=== PATIENT | female | born 1965 | race Caucasian/White ===

== ENCOUNTER 2025-05-17 07:31 | Emergency (ER) | payer OTHER ==
[~2025-05-17] VITALS: Ht 154.9 cm; Wt 67.1 kg
[~2025-05-17 07:31] MED LIST: ACYCLOVIR400 MG PO; CHLORTHALIDONE25 MG PO
[2025-05-17] MEDS ORDERED: HYDROmorphone HCL 1 MG/ML SYR IV PRN (08:00)
[2025-05-17] MEDS ORDERED: SODIUM CHLORIDE 0.9% 1,000 ML IV ONE (08:00)
[2025-05-17] MEDS ORDERED: LOSARTAN POTAS100 MG PO (08:03)
[2025-05-17] MEDS ORDERED: HYDROCHLOROTHIA25 MG PO (08:03)
[2025-05-17 08:04] LABS: BASOPHILS 0.3 % (0.1-1.2); EOSINOPHILS 0.5 % (0.7-5.8); LYMPHOCYTES 19.9 % (19.3-51.7); MCH 32.7 PG (25.6-32.2); MCHC 36.1 g/dL (32.2-35.5); MCV 90.6 fL (79.4-94.8); MONOCYTES 14.1 % (4.7-12.5); NEUTROPHILS 64.8 % (34.0-71.1); RBC 4.04 M/uL (3.93-5.22)
[2025-05-17] MEDS ORDERED: PEPCID20 MG PO (08:04)
[2025-05-17 08:31] LABS: ALT (SGPT) 21.0 U/L (14-59); AST (SGOT) 16.0 U/L (15-37); GLOMERULAR FILTRATION RATE,EST 95.0 mL/min (>60); PROTEIN, TOTAL 7.2 g/dL (6.4-8.2); UREA NITROGEN 11.0 mg/dL (7-18)
[2025-05-17 09:28] LABS: BLOOD/HGB, URINE NEGATIVE (Negative); KETONE, URINE NEGATIVE (Negative); LEUK ESTERASE, URINE NEGATIVE (negative); NITRITE, URINE NEGATIVE (negative)
[2025-05-17] MEDS ORDERED: AMOX TR-K CLV1 EAC1 PO (09:38)
[2025-05-17] MEDS ORDERED: AMOXICILLIN/CLAVULANATE K 875 MG TAB PO ONE (09:45)
[2025-05-17 10:02] VITALS: BP 132/90
== END 2025-05-17 10:02 | disposition home or self-care (01) ==
LOC: ED 07:31
PROVIDERS: Emergency Medicine
DX: K57.32 Diverticulitis of large intestine without perforation or abscess without bleeding (principal); I10 Essential (primary) hypertension; Z79.899 Other long term (current) drug therapy
CPT/HCPCS: 36415; 74177; 80053; 81003; 85025; 96361; 96374; 96375; 99284-25; J1171; J2405; J7030; Q9967